=== PATIENT | female | born 1975 | race Caucasian/White ===

== ENCOUNTER → 2024-04-12 | Outpatient (CLI) | payer BC, SELFPAY ==
--- NOTE | 2024-04-12 11:32 | NEURO_ITS ---
NCS and/or EMG Patient Report Ordering Doctor: Jacqueline Mccann DATE OF SERVICE: 04/12/24 Jhon presents with complaints of numbness and tingling in both hands. Electrodiagnostic findings:Right median motor nerve demonstrates normal distal latency, amplitude and conduction velocity. Left median motor nerve demons trates prolonged latency with normal amplitude and conduction velocity. Right ulnar motor nerve demonstrates normal distal latency and amplitude with a drop of greater than 20% conduction across the elbow. Left ulnar motor response is within normal limits. Normal median and ulnar F?waves. Prolonged left median sensory latency at the wrist. Needle EMG testing was performed in the upper limbs. All muscles tested showed no evidence of denervation with normal motor unit action potentials Electrodiagnostic assessment: This is an abnormal study in the upper limbs. 1. Electrodiagnostic findings suggestive of left-sided median mononeuropathy. This is consistent with a mild left carpal tunnel syndrome. 2. Electrodiagnostic findings suggestiv of right-sided ulnar neuropathy. This is consistent with a mild right cubital tunnel syndrome. Multi Select Codes Neurology Neurology Interp Codes: 95480-67 Musc test done w/n test comp (interp) (2) and 66747-16 Nrv cndj test 11-12 studies (interp)
== END | disposition home or self-care (01) ==
LOC: PSN 09:42
PROVIDERS: PCP Physician Assistant
DX: G56.03 Carpal tunnel syndrome, bilateral upper limbs (principal); G56.12 Other lesions of median nerve, left upper limb
CPT/HCPCS: 95886; 95912